=== PATIENT | male | born 1965 | race Caucasian/White ===

== ENCOUNTER → 2019-04-28 07:55 | Outpatient (BNVA) | payer OTHER, SELFPAY | PROVIDERS: Family Provider Internal Medicine; PCP Internal Medicine; Referring Provider Family Medicine; Visit Provider Specialist | DX: G56.01 Carpal tunnel syndrome, right upper limb (principal); G56.21 Lesion of ulnar nerve, right upper limb | CPT/HCPCS: 95908 ==

== ENCOUNTER 2019-05-19 10:02 | Outpatient (CLI) | payer OTHER, SELFPAY ==
--- NOTE | 2019-05-19 10:16 | XR_ITS ---
WS: [id number] XR wrist RT min 3V* [id number] REASON FOR EXAM: right carpal tunnel syndrome FINDINGS: The ulna radius were normal with normal articulation. The carpal bones appear to be normal with no distortion destructive findings. XR/XR wrist RT min 3V* [id number] IMPRESSION: Negative left wrist.
== END 2019-05-19 10:03 | disposition home or self-care (01) ==
LOC: RAD 10:04
PROVIDERS: Family Provider Internal Medicine; PCP Internal Medicine; Visit Provider Orthopaedic Surgery
DX: G56.01 Carpal tunnel syndrome, right upper limb (principal)
CPT/HCPCS: 73110

== ENCOUNTER 2019-07-01 07:34 | Day surgery (SDC) | payer OTHER, SELFPAY ==
[2019-06-30 10:19] VITALS: BMI 49.9
[2019-07-01 07:47] VITALS: BP 150/94; PULSE 80; RESP 20; TEMP 36.6; O2SAT 97
--- NOTE | 2019-07-01 08:17 | P.ANESASSM_ITS ---
Pre-Anesthetic Assessment Pre-Anesthetic Assessment: Height/Weight: Height 1.8 m Weight 162.386 kg Temp Pulse Resp BP Pulse Ox 97.8 F 80 20 H 150/94 97 07/01/19 07:47 07/01/19 07:47 07/01/19 07:47 07/01/19 07:47 07/01/19 07:47 Preop Diagnosis: Right Carpal Tunnel Release Proposed Procedure: Operation Date: 07/01/19 09:15 Proposed Procedures p Carpal Tunnel Release 53695 G56.01(Right) - Raffy Chaudhry MD Familial anesthetic complications: None Was Beta Astrid taken within 24 hour s: N/A Last intake: Intake Last Liquid Date 06/30/19 Last Liquid Time 22:30 Last Solid Date 06/30/19 Last Solid Time 22:00 Social: Social History: Alcohol and Tobacco Packs per day: 0.5 ppd Comment: 8-10 beers on weekends Exam: Pre-Anes Outpt Exam: alert, oriented x 3, clear to auscultation bilaterally and regular rate & rhythm Airway: Cervical ROM: WNL MP: 4 Dentition: Full Additional comments: missing teeth Large tongue, large neck circumference Marquez Pulmonary: Pulmonary: Sleep apnea (CPAP) CV/HEM: CV/HEM: HTN Comments: > 4 METS achievable : : None reported Hepatic: Hepatic: None reported GI: GI: GERD Metabolic: Metabolic: Hyperlipidemia and Morbid obesity Musc/skel: Musc/skel: None reported Neuropsych: Neuropsych: None reported Anesthetic Plan: ASA status: 2 Anesthesia: MAC Other: Patient ok with consious sedation as able or light MAC, informed he may have higher risk of conversion to general if unable to tolerate procedure Risk of > 500 ml blood loss (7ml/kg in children): No Data Anesthesia Cardiac Studies: No Data to Display
[2019-07-01] MEDS: sodium chloride 0.9% 1,000 ML 30 ML IV (08:19)
--- NOTE | 2019-07-01 08:34 | P.HP_ITS ---
Same Day Surgery H&P Indication for Procedure/HPI DATE OF PROCEDURE: July 01, 2019 CHIEF COMPLAINT/INDICATIONFOR SURGICAL PROCEDURE: Numbness pain right hand PREOP DIAGNOSIS: Right Carpal Tunnel Release PLANNED PROCEDRUE: Operation Date: 07/01/19 09:15 Proposed Procedures p Carpal Tunnel Release 25055 G56.01(Right) - Raffy Chaudhry MD 53-year-old male with numbness and pain in his right hand. He had strong improvement with a corticosteroid injection and moderate evidence of carpal tunnel syndrome on EMG nerve conduction studies. As he is failed conservative care he chose to proceed with right carpal tunnel release Medications/Allergies* Home Medications Medication Instructions Recorded Confirmed Type omeprazole 20 mg PO DAILY 06/30/19 06/30/19 History simvastatin 20 mg PO DAILY 06/30/19 06/30/19 History spironolacton-hydrochlorothiaz 25 tab PO DAILY 06/30/19 06/30/19 History Allergies/Adverse Reactions Allergy/AdvReac Type Severity Reaction Status Date / Time No Known Allergies Allergy Verified 05/19/19 09:33 Current Medications: Generic Name Dose Route Start Last Admin Trade Name Freq PRN Reason Stop Dose Admin Sodium Chloride 1,000 mls @ 30 mls/hr 07/01/19 07:45 07/01/19 08:19 Sodium Chloride 0.9% IV 07/02/19 07:44 30 mls/hr .Q24H ARIAN Administration Pertinent History/Comorbid Conditions* Family History (Updated 05/05/19 @ 10:44 by Jenna Pang LPN) Hypertension Denies family history of Diabetes Pertinent Exam Findings alert, oriented x 3, clear to auscultation bilaterally and regular rate & rhythm Recommendations Surgery/Procedure today Other Plans: Proceed with right carpal tunnel release Coding Level of Care Code Acute Retail Special Event Associate for Arielle Espana
[2019-07-01 08:49] LABS: Anion Gap 14.3 (5-19); Blood Urea Nitrogen 17 mg/dL (6-20); Calcium 9.7 mg/dL (8.5-10.5); Carbon Dioxide 29 mmol/L (22-29); Chloride 100 mmol/L (98-107); Glomerular Filtration Rate 57.7 mL/min (90-130); Glucose 113 mg/dL (65-115); Osmolality Calculated 285 mOsm/kg (285-295); Potassium 4.3 mmol/L (3.5-5.1); Sodium 139 mmol/L (136-145)
--- NOTE | 2019-07-01 09:37 | P.OP_ITS ---
Operative Report Date of procedure: July 01, 2019 Pre-op Diagnosis: Right Carpal Tunnel Release Post-op diagnosis: same Post-op Findings: Same Procedure Done: Right carpal tunnel release Pathology: none sent Science Education Professor: Raffy Chaudhry Anesthesia: General Estimated blood loss (mL): 10 Tourniquet time (min): 25 Complications: None Findings: No masses or space-occupying lesions were seen within the carpal tunnel Condition: stable Disposition: same day Procedure: Patient was taken to the operating room and anesthesia provided by the anesthesia service. She was prepped and draped with the arm exposed. A timeout was performed. A 3 cm long incision was made in line with the fourth ray from the distal edge of the carpal tunnel extending proximally. The subcutaneous fat and palmar fascia was divided with a scalpel blade. Under loupe magnification the ulnar neurovascular bundle was identified distally. A hemostat could be passed under the transverse carpal ligament allowing the distal 25% to be divided. A slotted guide was then passed beneath the transverse carpal ligament and the middle 50% divided. Blunt scissors were then passed over the guide freeing the proximal ligament. The tourniquet was deflated. Hemostasis provided with electrocautery. Wound edges were infiltrated with 10 cc of a half percent Marcaine solution. Skin edges were reapproximated with 3-0 Prolene. Sterile dressings were applied. The patient was taken to the recovery room in stable condition
[2019-07-01 09:55] VITALS: BP 161/103; PULSE 70; RESP 18; TEMP 36.8; O2SAT 99
[2019-07-01 10:40] VITALS: PULSE 68; RESP 18; O2SAT 98
== END 2019-07-01 10:45 | disposition home or self-care (01) ==
PROVIDERS: Anesthesiology; Family Provider Internal Medicine; PCP Internal Medicine; Visit Provider Orthopaedic Surgery
PROC: (CPT 64721; principal; 2019-07-01 09:05)
DX: G56.01 Carpal tunnel syndrome, right upper limb (principal); G47.30 Sleep apnea, unspecified; I10 Essential (primary) hypertension; K21.9 Gastro-esophageal reflux disease without esophagitis; E78.5 Hyperlipidemia, unspecified; E66.01 Morbid (severe) obesity due to excess calories; Z68.42 Body mass index [BMI] 45.0-49.9, adult; Z82.49 Family history of ischemic heart disease and other diseases of the circulatory system
CPT/HCPCS: 64721; 12345; 36415; 80048; J0690; J2001; J2250; J2704; J3010; J3490; J7030

== ENCOUNTER 2020-03-30 08:24 | Outpatient (RCR) | payer OTHER, SELFPAY | END 2020-04-03 23:59 | disposition home or self-care (01) | LOC: SOT 08:24 | PROVIDERS: PCP Internal Medicine; Referring Provider Orthopaedic Surgery; Visit Provider Orthopaedic Surgery | DX: Z47.89 Encounter for other orthopedic aftercare (principal) | CPT/HCPCS: 97110; 97165 ==

== ENCOUNTER 2020-04-01 15:33 | Outpatient (CLI) | payer OTHER, SELFPAY ==
--- NOTE | 2020-04-01 15:44 | MR_ITS ---
WS: [id number] MRI RIGHT KNEE NONCONTRAST TECHNIQUE: Axial PD, coronal PD fat sat, coronal PD, sagittal PD, and sagittal PD fat-sat images obta ined. CLINICAL INFORMATION: RIGHT KNEE EFFUSION COMPARISON: None. FINDINGS: Distal quadriceps and patella tendons are intact. Moderate suprapatellar effusion. ACL appears intact . Mucoid degeneration involving the ACL. Normal posterior cruciate ligament. Normal lateral meniscus. Small horizontal tear involving the posterior horn medial meniscus extending to the articular surfac e. Lateral subluxation of the patella in the trochlear groove. Recommend correlation for patellar instab ility. Patellar retinaculum appears intact. No subchondral edema or bony contusion. Mild chondromalac ia patella. Moderate chondromalacia involving the medial and lateral joint compartments worse in the medial joint compartment. Small amount of edema in the medial tibial plateau. Medial and lateral collateral ligam ents appear intact. MR/MR knee RT wo con* [id number] IMPRESSION: 1. Moderate suprapatellar effusion with hypertrophic patella. 2. ACL and PCL are intact. Mucoid degeneration involving the ACL. 3. Small horizontal tear involving the posterior horn medial meniscus extendin g to the articular surface. 4. Moderate joint space narrowing involving the medial joint compartment with chondromalacia and small amount of edema in the tibial plateau. 5. Lateral subluxation of the patella in the trochlear groove. Recommend corre lation for patellar instability. Retinaculum appears intact. 6. Mild chondromalacia patella. 7. Medial and lateral collateral ligaments appear intact.
== END 2020-04-01 15:34 | disposition home or self-care (01) ==
LOC: RADSHAW 15:34
PROVIDERS: PCP Internal Medicine; Visit Provider Nurse Practitioner
DX: M25.461 Effusion, right knee (principal); M22.41 Chondromalacia patellae, right knee; S83.241A Other tear of medial meniscus, current injury, right knee, initial encounter; X58.XXXA Exposure to other specified factors, initial encounter
CPT/HCPCS: 73721

== ENCOUNTER 2020-04-04 06:00 | Outpatient (RCR) | payer OTHER, SELFPAY | END 2020-05-01 23:59 | disposition home or self-care (01) | LOC: SOT 06:00 | PROVIDERS: PCP Internal Medicine; Referring Provider Orthopaedic Surgery; Visit Provider Orthopaedic Surgery | DX: Z47.89 Encounter for other orthopedic aftercare (principal) | CPT/HCPCS: 97110 ==

== ENCOUNTER → 2020-04-15 11:06 | Outpatient (BNVA) | payer OTHER, SELFPAY | PROVIDERS: PCP Internal Medicine; Visit Provider Orthopaedic Surgery | DX: Z01.812 Encounter for preprocedural laboratory examination (principal) | CPT/HCPCS: 87635 ==

== ENCOUNTER 2020-04-21 08:52 | Day surgery (SDC) | payer OTHER, SELFPAY ==
[2020-04-20 09:19] VITALS: BMI 50.2
[2020-04-21] VITALS (7 sets, daily range): BP systolic 104–150; BP diastolic 60–103; PULSE 92–110; RESP 9–19; TEMP 36.2–36.8; O2SAT 93–97
--- NOTE | 2020-04-21 09:20 | W.PM.OPSUD ---
Surgery/Procedure H&P Update DATE OF PROCEDURE: April 21, 2020 DATE H&P PERFORMED: 04/12/20 PREOP DIAGNOSIS: Knee right medial meniscal tear PLANNED PROCEDURE: Operation Date: 04/21/20 10:30 Proposed Procedures p Knee Arthroscopy with medial meniscectomy 79750 S83.249A(Right) - Raffy Chaudhry MD
--- NOTE | 2020-04-21 09:24 | ANES.PREANE2 ---
Pre-Anesthetic Assessment Pre-Anesthetic Assessment: Height/Weight: Height 1.8 m Weight 163.293 kg Temp Pulse Resp BP Pulse Ox 98.3 F 92 18 108/81 96 04/21/20 09:08 04/21/20 09:08 04/21/20 09:08 04/21/20 09:08 04/21/20 09:08 Preop Diagnosis: Knee right medial meniscal tear Proposed Procedure: Operation Date: 04/21/20 10:30 Proposed Procedures p Knee Arthroscopy with medial meniscectomy 94423 S83.249A(Right) - Raffy Chaudhry MD Was Beta Astrid taken within 24 hours: N/A Last intake: Intake Last Liquid Date 04/20/20 Last Liquid Time 21:00 Last Solid Date 04/20/20 Last Solid Time 17:00 Social: Social History: Alcohol (2 days a week 8 beers a day.) and Tobacco Packs per day: 1/2 Pack years: 36 Comment: trying to quit Exam: Pre-Anes Outpt Exam: alert, oriented x 3 and clear to auscultation bilaterally Airway: Submandibular: WNL Cervical ROM: WNL MP: 2 Dentition: Chipped Additional comments: poor dentition History/ROS: No significant history except as noted Pulmonary: Pulmonary: Sleep apnea Comments: wears CPAP device at night. CV/HEM: CV/HEM: HTN Comments: Cardiac Cath done 10 years prior normal result per patient. : : None reported Hepatic: Hepatic: None reported GI: GI: GERD Metabolic: Metabolic: Hyperlipidemia Musc/skel: Musc/skel: None reported Neuropsych: Neuropsych: None reported Anesthetic Plan: ASA status: 3 Anesthesia: Anesthesia Evaluation and General Risk of > 500 ml blood loss (7ml/kg in children): No PFSH Anesthesia PFSH: Family History Father ALS (amyotrophic lateral sclerosis) Other Hypertension Denies family history of Diabetes Social History Smoking and tobacco status: current every day smoker Alcohol intake: current Marital status: Data Anesthesia Cardiac Studies: No Data to Display
[2020-04-21] MEDS: sodium chloride 0.9% 1,000 ML 30 ML IV (09:25)
[2020-04-21] MEDS: morphine 4 mg/mL SDV 1 mL 8 MG (10:40)
--- NOTE | 2020-04-21 11:17 | P.OP_ITS ---
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 These flap seem to involve approximately 70% of thickness of cartilage although no exposed subchondral bone was noted. A small 1 cm in diameter area of full-thickness cartilage loss was seen in the posterior weightbearing aspect of the condyle. Extended up into the trochlea but did not involve the immediate weightbearing aspect of the medial femoral condyle she he had flaps and fissures centrally over his patella involving perhaps 50% of the thickness of the cartilage Condition: stable Disposition: PACU Procedure: The patient was taken to the operating room and given a general ane sthesia. He was prepped and draped in the usual fashion. His knee with infiltrated 30 cc of 0.5% Marcaine with epi and 10 mg of morphine. The knee was then entered through standard inferior medial and inferior lateral portals. The diagnostic portion of arthroscopy was performed. Attention was initially paid to the medial meniscus. It was carefully probed and found to be free of tearing. Area of full-thickness cartilage loss was identified in the far posterior weightbearing medial femoral condyle. Utilizing an incisor shaver and [employer] Werewolf probe unstable peripheral cartilage was debrided and the edges stabilized. Attention then moved to the more anterior and lateral medial femoral condyle. Large unstable flaps were debrided back with incisor shaver and the werewolf probe. At no point was exposed subchondral bone and identified here all the flaps did seem to involve approximately 70% of the thickness of the cartilage. Fortunately did not extend into the weightbearing aspect. The conclusion of debridement stable base of the residual cartilage, albeit thinned, was present throughout. Tension was then focused on the undersurface the patella. Initially an incisor was utilized to remove unstable central flaps. The M[employer]ett [employer]hew Werewolf probe was then used to debride back the margins to stable edges. At least 50% of the central cartilage was felt to remain. He was treated with saline. Portals were closed with 3-0 Prolene. Sterile dressings were applied. The patient was extubated taken recovery room in stable condition.
--- NOTE | 2020-04-21 11:29 | SUR.PHASEI ---
PT AWAKE ALERT , VERBALLY DENIES PAIN AND NAUSEA, RT KNEE DRESSING D/I DISTAL FOOT PINK WARM WITH PULSE NOTED CAP REFILL LESS THAN 3 SECONDS. BP ELEVATED AND HR PT JUST AWOKE WILL MONITOR BP.
[2020-04-21] MEDS: oxyCODONE-APAP 5-325 mg Tablet 1 TAB PO (11:57)
--- NOTE | 2020-04-21 17:19 | ANE.PACU2 ---
Inpatient post-anesthesia follow up: Airway intact: Yes Vital signs: Temperature 97.1 F Pulse Rate 100 Respiratory Rate 18 Blood Pressure 125/85 Pulse Oximetry 94 Oxygen Delivery Me thod Room Air Oxygen Flow Rate 8 Fraction of Inspir ed Oxygen Hydration adequate: Yes Nausea and vomiting: No Pain level: 2 Mental status: Baseline
== END 2020-04-21 12:17 | disposition home or self-care (01) ==
PROVIDERS: PCP Internal Medicine; Visit Provider Orthopaedic Surgery
PROC: (CPT 29870; principal; 2020-04-21 10:30)
DX: S83.241A Other tear of medial meniscus, current injury, right knee, initial encounter (principal); X58.XXXA Exposure to other specified factors, initial encounter; F17.210 Nicotine dependence, cigarettes, uncomplicated; I10 Essential (primary) hypertension; K21.9 Gastro-esophageal reflux disease without esophagitis; E78.5 Hyperlipidemia, unspecified
CPT/HCPCS: 29877; J0330; J0690; J1100; J2270; J2405; J2704; J3010; J3490; J7030

== ENCOUNTER → 2020-09-12 10:55 | Outpatient (BNVA) | payer BC, OTHER, SELFPAY | PROVIDERS: PCP Internal Medicine; Visit Provider Nurse Practitioner Family | DX: Z20.822 Contact with and (suspected) exposure to COVID-19 (principal) | CPT/HCPCS: 87635 ==

== ENCOUNTER → 2020-09-15 10:48 | Outpatient (BNVA) | payer BC, OTHER, SELFPAY | PROVIDERS: PCP Internal Medicine; Visit Provider Internal Medicine | DX: Z01.812 Encounter for preprocedural laboratory examination (principal); K22.70 Barrett's esophagus without dysplasia | CPT/HCPCS: 87635 ==

== ENCOUNTER 2020-10-23 07:28 | Emergency (ER) | payer BC, SELFPAY ==
[2020-10-23 07:33] VITALS: BP 169/93; PULSE 86; O2SAT 96
--- NOTE | 2020-10-23 07:33 | ECG_ITS ---
[facility] Test Date: 2020-10-23 Pat Name: Med Chairez Department: Room: Gender: Male Surgery Assistant: : 1965 Requested By: Blank Hendrickson Order Number: [id number] Melgar MD: Nahomi Brito M.D. Measurements Intervals [place] Rate: 82 P: 32 TN: 209 QRS: -22 QRSD: 109 T: 31 QT: 354 QTc: 415 Interpretive Statements SINUS RHYTHM BORDERLINE LEFT AXIS DEVIATION [QRS AXIS < -20] No previous ECG available for comparison Electronically Signed On 10-24-2020 13:12:22 CDT by Nahomi Brito M.D. [email or web address]
[2020-10-23 07:34] VITALS: BP 169/93; PULSE 84; RESP 18; TEMP 36.6; O2SAT 97; BMI 51.8
--- NOTE | 2020-10-23 07:39 | ED_ITS ---
HPI - Chest Pain General: Chief Complaint: Chest Pain Stated Complaint: Chest Tightness/Stomach Pain Time Seen by Provider: 10/23/20 07:30 Source: patient and family () Mode of arrival: ambulatory Limitations: no limitations History of Present Illness: HPI narrative: Patient is a nice 54-year-old male who presents to ED today along with his for complaints of chest and abdominal pain that has been present over the past 3 to 4 weeks. Patient tells me he is having a lot of bloating and belching. He is also noticed constipation which he is treating with laxatives. Patient states he was having some abdominal pains and low-grade fevers and states his PCP treated him for tick illness with doxycycline (empirical treatment, no tick panel ran). Patient states that pain radiates up into his chest and into his left shoulder although admittedly states he has had problems with his left shoulder before and states this could just be musculoskeletal. He denies any shortness of breath or difficulty breathing. No known cardiac or pulmonary disease. He states he does have a history of GERD. He states his symptoms seem to improve after belching . Patient is concerned it could be his gallbladder. He does not complain of pain to his right upper quadrant. Reports some nausea but no episodes of vomiting. MD complaint: chest pain and other (abdominal pain) Onset (ago): week(s) Timing of current episode: episodic Prior episodes: Yes Pain radiation: left shoulder Relieving factors: other ( belching ) Exacerbating factors: eating Associated symptoms: Reports abdominal pain and nausea; Deny dyspnea, fever(s), palpitations, syncope or vomiting Review of Systems Const: Denies: fever(s), chills, body aches, fatigue or malaise Eyes: Denies: change in vision, blurry vision or photophobia ENMT: Denies: throat pain, odynophagia, nasal discharge or nasal congestion Card: Reports: chest pain; Denies: palpitations, irregular heart rhythm, edema, swelling of feet/ankles, lightheadedness, syncope, pre-syncope, dyspnea on exertion, orthopnea or leg pain with exertion Resp: Denies: dyspnea, productive cough, non-productive cough, hemoptysis or chest congestion GI: Reports: abdominal pain, nausea, constipation and belching; Denies: vomiting, hematemesis, hematochezia or melena : Denies: flank pain or dysuria Musc: Reports: back pain; Denies: neck pain, extremity pain or joint pain Skin/Breast: Denies: rash Neuro: Denies: headache(s), numbness in extremities, weakness in extremities, sensory changes or dizziness PFSH ED PFSH: Family History Father ALS (amyotrophic lateral sclerosis) Other Hypertension Denies family history of Diabetes Social History Smoking and tobacco status: current every day smoker Alcohol intake: current Marital status: History of recent travel: No Physical Exam Const: COMMON NORMALS: no acute distress, patient oriented x3, no limitations and alert GENERAL APPEARANCE: cooperative NUTRITIONAL APPEARANCE: obese morbidly obese (BMI > 50) ORIENTATION/CONSCIOUSNESS: Yes awake, Yes oriented to person, Yes oriented to place and Yes oriented to time HENMT: COMMON NORMALS: normocephalic and atraumatic HEAD & SCALP: normocephalic and atraumatic Chest: COMMONS NORMALS: normal inspection of the chest OTHER: mild tenderness to L anterior chest wall Resp: COMMON NORMALS: normal respiratory effort and clear to auscultation bilaterally AUSCULTATION: clear to auscultation bilaterally Cardio: COMMON NORMALS: regular rate and regular rhythm RATE: regular rate RHYTHM: regular rhythm GI: COMMON NORMALS: Normal to inspection, nondistended, normoactive bowel sounds present, Soft to palpation and no masses PALPATION: Yes Soft to palpation and Yes Tenderness to palpation present (GI) (mild tenderness throughout upper abdomen) : COMMON NORMALS: Yes no CVA tenderness BLADDER/KIDNEY EXAM: Yes no CVA tenderness Back/Pelvis: COMMON NORMALS: no CVA tenderness BACK IMAGE (MALE): 1. TTP; states he has had problems with this area before hurting Extremity: COMMON NORMALS: capillary refill normal, no clubbing, cyanosis or edema, no calf tenderness and no pedal edema Neuro: COMMON NORMALS: patient oriented x3 SENSORIUM/ORIENTATION: Yes alert, Yes oriented to person, Yes oriented to place and Yes oriented to time Skin: COMMON NORMALS: no rashes or lesions noted GENERAL SKIN EXAM: no rashes or lesions noted TRAUMA: no lacerations or abrasions Course Vital Signs: Vital signs: Vital Signs Temperature 97.9 F 08/22/21 07:34 Pulse Rate 84 10/23/20 07:34 Respiratory Rate 18 10/23/20 07:34 Blood Pressure 169/93 10/23/20 07:34 Pulse Oximetry 97 10/23/20 07:34 MDM - Chest Pain MDM Narrative: Medical decision making narrative: Patient here with complaints of abdominal and chest pain as well as bloating and belching. He states symptoms improve after belching. He did get relief with a GI cocktail here. Vital signs are stable. Patient has a nonsurgical abdomen. Labs including CBC, CMP, lipase, UA, and troponin are fairly unremarkable. Glucose mildly elevated at 150. No history of diabetes. UA with hematuria and trace leuks/bacteria. He has no urinary symptoms at this time. Initial troponin is normal. EKG without ischemic changes. CXR showing mild atelectasis. Patient states he was placed on pantoprazole by Dr. Cotton recently but states this medication has not seemed to help much. He has a follow-up appointment on Saturday. Will place him on an H2 russ along with his PPI. Lab Data: Labs: Lab Results 10/23/20 10/23/20 10/23/20 Range/Units 07:57 08:12 08:12 WBC 5.8 (4.0-10.0) 10^3/ uL RBC 5.59 H (4.1-5.3) 10^6/u L Hgb 16.6 (11.7-16.6) g/dL Hct 49.9 (42.0-52.0) % MCV 89.3 (80-94) fl MCH 29.7 (28.0-34.0) pg MCHC 33.3 (30.0-36.0) g/dL RDW 14.6 (12.1-15.1) % Plt Count 201 (130-400) 10^3/c mm MPV 9.7 (7.4-10.4) fL Neut % (Auto) 74.8 % Lymph % (Auto) 16.6 % [place] % (Auto) 4.8 % Eos % (Auto) 3.1 % Baso % (Auto) 0.5 % Neut # (Auto) 4.32 (1.8-7.7) 10^3/u L Lymph # (Auto) 1.0 (0.8-4.8) 10^3/u L [place] # (Auto) 0.3 (0.2-0.9) 10^3/u L Eos # (Auto) 0.2 (0.0-0.8) 10^3/u L Baso # (Auto) 0.0 (0.0-0.1) 10^3/u L Nucleated RBC % (a uto) 0 % Nucleated RBCs # 0.0 /100WBC Sodium 138 (136-145) mmol/L Potassium 4.0 (3.5-5.1) mmol/L Chloride 102 (98-107) mmol/L Carbon Dioxide 25 (22-29) mmol/L Anion Gap 15.0 (5-19) BUN 14 (6-20) mg/dL Creatinine 0.8 (0.7-1.2) mg/dL GFR Calculation 100.7 (90-130) mL/min Glucose 150 H (65-115) mg/dL Calculated Osmolal ity 289 (285-295) mOsm/k g Calcium 8.9 (8.5-10.5) mg/dL Total Bilirubin 0.8 (0.15-1.2) mg/dL AST 27 (0-40) U/L ALT 41 (0-41) U/L Alkaline Phosphata se 75 (40-130) IU/L Troponin T Baselin e 7 (0-15) ng/L Total Protein 7.4 (6.6-8.7) g/dL Albumin 4.0 (3.5-5.2) g/dL Globulin 3.4 (1.3-4.6) g/dL Lipase 20 (13-60) U/L Urine Color (Yellow) Urine Appearance (CLEAR) Urine pH (5-7) Ur Specific Gravit y (1.005-1.030) Urine Protein (Negative) Urine Glucose (UA) (Normal) Urine Ketones (Negative) Urine Blood (Negative) Urine Nitrate (Negative) Urine Bilirubin (Negative) Urine Urobilinogen (Negative) mg/dL Ur Leukocyte Magdalena ase (Negative) Urine RBC (0-2) /hpf Urine WBC (0-5) /hpf Ur Squamous Epith Cells (0-5) /hpf Amorphous Sediment Urine Bacteria (NONE) /hpf Urine Mucus /hpf 08/22/21 Range/Units 08:43 WBC (4.0-10.0) 10^3/ uL RBC (4.1-5.3) 10^6/u L Hgb (11.7-16.6) g/dL Hct (42.0-52.0) % MCV (80-94) fl MCH (28.0-34.0) pg MCHC (30.0-36.0) g/dL RDW (12.1-15.1) % Plt Count (130-400) 10^3/c mm MPV (7.4-10.4) fL Neut % (Auto) % Lymph % (Auto) % [place] % (Auto) % Eos % (Auto) % Baso % (Auto) % Neut # (Auto) (1.8-7.7) 10^3/u L Lymph # (Auto) (0.8-4.8) 10^3/u L [place] # (Auto) (0.2-0.9) 10^3/u L Eos # (Auto) (0.0-0.8) 10^3/u L Baso # (Auto) (0.0-0.1) 10^3/u L Nucleated RBC % (a uto) % Nucleated RBCs # /100WBC Sodium (136-145) mmol/L Potassium (3.5-5.1) mmol/L Chloride (98-107) mmol/L Carbon Dioxide (22-29) mmol/L Anion Gap (5-19) BUN (6-20) mg/dL Creatinine (0.7-1.2) mg/dL GFR Calculation (90-130) mL/min Glucose (65-115) mg/dL Calculated Osmolal ity (285-295) mOsm/k g Calcium (8.5-10.5) mg/dL Total Bilirubin (0.15-1.2) mg/dL AST (0-40) U/L ALT (0-41) U/L Alkaline Phosphata se (40-130) IU/L Troponin T Baselin e (0-15) ng/L Total Protein (6.6-8.7) g/dL Albumin (3.5-5.2) g/dL Globulin (1.3-4.6) g/dL Lipase (13-60) U/L Urine Color Dark yellow (Yellow) Urine Appearance Clear (CLEAR) Urine pH 6.5 (5-7) Ur Specific Gravit y 1.020 (1.005-1.030) Urine Protein Trace (Negative) Urine Glucose (UA) Norm (Normal) Urine Ketones Negative (Negative) Urine Blood 2+ H (Negative) Urine Nitrate Negative (Negative) Urine Bilirubin Neg (Negative) Urine Urobilinogen 1 H (Negative) mg/dL Ur Leukocyte Magdalena ase Trace H (Negative) Urine RBC 0-4 H (0-2) /hpf Urine WBC 0-4 H (0-5) /hpf Ur Squamous Epith Cells None (0-5) /hpf Amorphous Sediment Not Reportable Urine Bacteria 1+ H (NONE) /hpf Urine Mucus 1+ /hpf Imaging Data^: CXR: Radiologist's impression: [address] [id number] ReportSigned Patient: Med Chairez #: [id number]: 1965Acct#:[id number]/Sex: 54 / MADM Date: 10/23/20Loc: ERRoom/Bed:Attending Dr: Ordering Provider/Ordering MD: Blank Hendrickson Date of Service: 10/23/20 Procedure(s): XR chest 1V portable [id number] Accession Number(s): [id number] Report Number: [id number] PROCEDURE INFORMATION: Exam: XR Chest Exam date and time: 10/23/2020 7:39 AM Age: 54 years old Clinical indication: Pain; On breathing; Additional info: Chest pain TECHNIQUE: Imaging protocol: XR of the chest. Views: Frontal portable upright view of the chest. COMPARISON: No relevant prior studies available. FINDINGS: Lungs: Mild left lateral basilar subsegmental atelectasis. The lungs are otherwise peripherally clear bilaterally. The pulmonary vasculature is normal. Pleural spaces: No pleural effusion. No pneumothorax. Heart/Mediastinum: The heart is normal in size and contour. Bones/joints: No acute abnormality identified. XR/XR chest 1V portable [id number] IMPRESSION: Mild left lateral basilar subsegmental atelectasis. Dictated By:Jefferson Maria MDSigned By:Jefferson Maria MDSigned Date/Time:10/23/20932DD/ 0 EKG Data^: EKG 1: EKG interpretation date: 10/23/20 EKG interpretation time: 07:38 Interpretation: Sinus rhythm Rate [address] elevation or depression changes noted Signed off by Dr. Louis Discharge Plan Discharge Patient Disposition: Home Clinical Impression: Gastroesophageal reflux disease Qualifiers: Esophagitis presence: esophagitis presence not specified Qualified Code(s): K21.9 - Gastro-esophageal reflux disease without esophagitis Condition: Stable Prescriptions: New Zantac-360 (famotidine) 10 mg tablet 10 mg PO BID Qty: 30 RF: 0 No Action (DME) cpap See Rx Instructions .Route .MEDSUPPLY Qty: 1 RF: 0 (DME) cpap supplies See Rx Instructions .Route .MEDSUPPLY Qty: 1 RF: 0 doxycycline hyclate 100 mg capsule 100 mg PO BID Qty: 20 RF: 0 pantoprazole 40 mg tablet,delayed release (DR/EC) 40 mg PO QAM Qty: 90 RF: 3 simvastatin 20 mg tablet 20 mg PO DAILY Qty: 90 RF: 3 spironolacton-hydrochlorothiaz 25-25 mg tablet 25 tab PO DAILY Qty: 90 RF: 3 Discharge Orders: Discharge ED (Routine); Ordered 10/23/20 Ordered By: Blank Hendrickson Referrals: Nash Cotton MD [Primary Care Provider] - Patient Instructions: Gastroesophageal Reflux Disease (ED) Activity Restrictions/Additional Instructions: As we discussed please follow-up with Dr. Cotton at your scheduled appointment on Saturday. Please return to the emergency department for worsening or severe abdominal or chest pain, shortness of breath, difficulty breathing, repetitive episodes of vomiting, bloody vomit, fevers, or any other concerns you may have. I hope you begin to feel better soon. Coding Level of Care Code ED Chief Green Officer for Chg Fwd Exam Comprehensive
[2020-10-23 08:06] LABS: Basophils % 0.5 %; Eosinophils # 0.2 10^3/uL (0.0-0.8); Eosinophils % 3.1 %; Hematocrit 49.9 % (42.0-52.0); Hemoglobin 16.6 g/dL (11.7-16.6); Lymphocytes % 16.6 %; Mean Corpuscular HGB Conc 33.3 g/dL (30.0-36.0); Mean Corpuscular Hemoglobin 29.7 pg (28.0-34.0); Mean Corpuscular Volume 89.3 fl (80-94); Mean Platelet Volume 9.7 fL (7.4-10.4); Monocytes # 0.3 10^3/uL (0.2-0.9); Monocytes % 4.8 %; Neutrophils # 4.32 10^3/uL (1.8-7.7); Neutrophils % 74.8 %; Nucleated Red Blood Cells % 0 %; Platelet Count 201 10^3/cmm (130-400); Red Blood Count 5.59 10^6/uL (4.1-5.3); Red Cell Distribution Width 14.6 % (12.1-15.1); White Blood Count 5.8 10^3/uL (4.0-10.0)
[2020-10-23] MEDS: lidocaine 2% viscous 15 ML, aluminum-mag hydrox-simethicon 30 ML, sucralfate oral liq 1 GM PO (08:34)
[2020-10-23 08:54] LABS: Alanine Aminotransferase 41 U/L (0-41); Alkaline Phosphatase 75 IU/L (40-130); Aspartate Amino Transferase 27 U/L (0-40); Blood Urea Nitrogen 14 mg/dL (6-20); Calcium 8.9 mg/dL (8.5-10.5); Carbon Dioxide 25 mmol/L (22-29); Chloride 102 mmol/L (98-107); Globulin 3.4 g/dL (1.3-4.6); Glomerular Filtration Rate 100.7 mL/min (90-130); Glucose 150 mg/dL (65-115); Lipase 20 U/L (13-60); Osmolality Calculated 289 mOsm/kg (285-295); Sodium 138 mmol/L (136-145); Total Bilirubin 0.8 mg/dL (0.15-1.2); Total Protein 7.4 g/dL (6.6-8.7)
[2020-10-23 08:54] LABS: Bilirubin Urine Neg (Negative); Blood Urine 2+ (Negative); Glucose Urine UA Norm (Normal); Ketones Urine Negative (Negative); Nitrate Urine Negative (Negative); Protein Urine Trace (Negative); Urine Appearance Clear (CLEAR); Urine Color Dark Yellow (Yellow); pH Urine 6.5 (5-7)
[2020-10-23 08:55] LABS: Add Urine Microscopic? YES; Leukocyte Esterase Urine Trace (Negative); Urobilinogen Urine 1 mg/dL (Negative)
[2020-10-23 08:57] LABS: Add Urine Culture? No; Bacteria Urine 1+ /hpf; Mucus Urine 1+ /hpf; RBC Urine 0-4 /hpf (0-2); WBC Urine 0-4 /hpf (0-5)
[2020-10-23 08:58] LABS: Troponin(5th) Baseline 7 ng/L (0-15)
== END 2020-10-23 09:55 | disposition home or self-care (01) ==
PROVIDERS: Emergency Provider Physician Assistant; PCP Internal Medicine
DX: K21.9 Gastro-esophageal reflux disease without esophagitis (principal); F17.200 Nicotine dependence, unspecified, uncomplicated
CPT/HCPCS: 71045; 80053; 81001; 83690; 84484; 85025; 93005; 99283

== ENCOUNTER → 2021-02-02 12:05 | Outpatient (BNVA) | payer BC, SELFPAY | PROVIDERS: PCP Internal Medicine; Visit Provider Nurse Practitioner Family | DX: Z20.822 Contact with and (suspected) exposure to COVID-19 (principal) | CPT/HCPCS: 87426 ==

== ENCOUNTER 2021-07-27 07:12 | Outpatient (CLI) | payer BC, SELFPAY ==
--- NOTE | 2021-07-27 14:36 | PFTS_ITS ---
Date of Study:07/27/21 Date of Dictation: MECHANICS: Forced vital capacity (FVC) is normal. Forced expiratory volume in one second (FEV1) is normal. FEV1/FVC is normal. FLOW VOLUME LOOP: Scooping present. LUNG VOLUMES: Total lung capacity (TLC) is reduced. Residual volume (RV) is reduced. DIFFUSING CAPACITY FOR CARBON MONOXIDE: Normal. INTERPRETATION: The prebronchodilator spirometry is normal. No postbronchodilator spirometry was performed. Lung volumes are consistent with mild restriction. Gas exchange (DLCO) is normal. MTDD
== END 2021-07-27 07:13 | disposition home or self-care (01) ==
LOC: RT 07:13
PROVIDERS: PCP Internal Medicine; Visit Provider Internal Medicine
DX: R06.02 Shortness of breath (principal)
CPT/HCPCS: 94010; 94726; 94729

== ENCOUNTER → 2022-01-29 09:43 | Outpatient (BNVA) | payer OTHER, SELFPAY | PROVIDERS: PCP Family Medicine; Visit Provider Family Medicine | DX: E78.5 Hyperlipidemia, unspecified (principal) | CPT/HCPCS: 80053; 80061 ==

== ENCOUNTER 2023-02-28 07:38 | Outpatient (CLI) | payer OTHER, MEDICAID, SELFPAY ==
--- NOTE | 2023-02-28 08:00 | USR_ITS ---
PROCEDURE INFORMATION: Exam: US Abdomen, Limited; Right Upper Quadrant Exam date and time: 02/28/2023 7:57 AM Age: 57 years old Clinical indication: Nausea; Additional info: Postprandial nausea diarrhea TECHNIQUE: Imaging protocol: Real time ultrasound of the abdomen with image documentation. Limited exam focused on the right upper quadrant. COMPARISON: US scrotum [id number] 11/13/2016 3:24 PM FINDINGS: Liver: The liver is diffusely echogenic and attenuating, compatible with fatty infiltration. Gallbladder: Normal. No gallstones. There is no gallbladder wall thickening. Biliary ducts: The common duct measures 5 mm. Pancreas: The pancreas was poorly depicted. Right kidney: The right kidney measures 11.9 cm in length, is normal in contour and echotexture without hydronephrosis. Bowel: The study is degraded by the patient's body habitus and obscuring bowel gas. US/US abdomen limited [id number] IMPRESSION: Limited study. Fatty liver.
== END 2023-02-28 07:39 | disposition home or self-care (01) ==
LOC: RAD 07:38
PROVIDERS: PCP Family Medicine; Visit Provider Family Medicine
DX: R11.0 Nausea (principal); K52.9 Noninfective gastroenteritis and colitis, unspecified; K76.0 Fatty (change of) liver, not elsewhere classified
CPT/HCPCS: 76705

== ENCOUNTER 2023-04-02 07:36 | Outpatient (CLI) | payer MEDICAID, SELFPAY ==
--- NOTE | 2023-04-02 08:00 | NM_ITS ---
WS: [id number] NUCLEAR MEDICINE HIDA SCAN CLINICAL INFORMATION: r/o gallbladder dysfunction, normal us TECHNIQUE: Following intravenous administration of 7.4 mCi of technetium 99m mebrofenin, images of th e abdomen were obtained over the course of 60 minutes. Next, gallbladder ejection fraction was determ ined by obtaining preprandial and one-hour postprandial images of the gallbladder following oral pooja stion of Ensure. COMPARISON: Ultrasound 02/28/2023 FINDINGS: Normal hepatic uptake at 5 minutes. Normal hepatic excretion. Hepatomegaly. Gallbladder is visualized by 20 minutes. No evidence of acute cholecystitis. Normal common bile duct and small bowel activity. Abnormal decreased gallbladder ejection fraction 17%. IMPRESSION: 1. Decreased gallbladder ejection fraction 17% compatible with gallbladder dysfunction. Recommend co rrelation for chronic cholecystitis.
== END 2023-04-02 07:37 | disposition home or self-care (01) ==
LOC: RAD 07:36
PROVIDERS: PCP Family Medicine; Visit Provider Family Medicine
DX: R16.0 Hepatomegaly, not elsewhere classified (principal); R11.0 Nausea; R94.8 Abnormal results of function studies of other organs and systems
CPT/HCPCS: 78227; A9537

== ENCOUNTER → 2023-04-08 10:46 | Outpatient (BNVA) | payer MEDICAID, SELFPAY | PROVIDERS: PCP Family Medicine; Visit Provider Family Medicine | DX: R42 Dizziness and giddiness (principal) | CPT/HCPCS: 80053; 82607; 83735; 84443; 85025 ==

== ENCOUNTER 2023-06-03 05:43 | Day surgery (SDC) | payer MEDICAID, SELFPAY ==
[2023-06-03] VITALS (14 sets, daily range): BP systolic 106–142; BP diastolic 67–86; PULSE 71–103; RESP 9–22; TEMP 36.1–36.3; O2SAT 92–99; BMI 48.8
[2023-06-03] MEDS: sodium chloride 0.9% 1,000 ML 30 ML IV (06:11)
--- NOTE | 2023-06-03 06:47 | P.HP_ITS ---
Same Day Surgery H&P Indication for Procedure/HPI DATE OF PROCEDURE: June 03, 2023 CHIEF COMPLAINT/INDICATIONFOR SURGICAL PROCEDURE: chronic cholecystitis PREOP DIAGNOSIS: chronic cholecystitis PLANNED PROCEDURE: Operation Date: 06/03/23 07:00 Proposed Procedures p 08490 lap delmar K81.1(Not Applicable) - Jordan Acosta MD Medications/Allergies* Home Medications Medication Instructions Recorded Confirmed Type pantoprazole 40 mg tablet,delayed 40 mg PO BID 05/31/23 05/31/23 History release Allergies/Adverse Reactions Allergy/AdvReac Type Severity Reaction Status Date / Time No Known Allergies Allergy Verified 05/31/23 08:34 Current Medications: Generic Name Dose Route Start Last Admin Trade Name Freq PRN Reason Stop Dose Admin Sodium Chloride 1,000 mls @ 30 mls/hr 06/03/23 06:00 06/03/23 06:11 Sodium Chloride 0.9% IV 06/04/23 05:59 30 mls/hr .Q24H ARIAN Administration Pertinent History/Comorbid Conditions* Medical History (Updated 04/23/23 @ 16:03 by Jordan Acosta MD) Anxiety Hypertension Hyperlipidemia NASH on CPAP Tobacco abuse History of scrotal mass surgery to remove abcess Class 3 severe obesity with body mass index (BMI) of 50.0 to 59.9 in adult GERD (gastroesophageal reflux disease) Surgical History (Updated 01/29/22 @ 08:51 by Millie Contreras MD) History of arthroscopic knee surgery bilateral History of tonsillectomy History of colonoscopy History of carpal tunnel release 07/01/2019- rt wrist Family History (Updated 01/29/22 @ 08:52 by Millie Contreras MD) ALS (amyotrophic lateral sclerosis) Father Hypertension Mother Denies family history of Diabetes CAD (coronary artery disease) Chronic kidney disease (CKD) Family history of premature coronary artery disease Cancer Stroke Social History Smoking and tobacco/nicotine status: current every day tobacco/nicotine user cigarettes Packs smoked per day: 0.5 Quit status (tobacco/nicotine): considering quitting Alcohol intake: current Alcohol intake frequency: few times a week Substance/Drug Use: never Lives independently: Yes Household members: significant other Marital status: Number of children: 3 service: No Current occupational status: retired 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
--- NOTE | 2023-06-03 06:59 | P.ANESASSM_ITS ---
Pre-Anesthetic Assessment Height/Weight: Height 1.8 m Weight 158.757 kg Temp Pulse Resp BP Pulse Ox O2 Del Method 97 F L 103 H 20 H 128/86 94 Room Air 06/03/23 05:56 06/03/23 05:56 06/03/23 05:56 06/03/23 05:56 06/03/23 05:56 06/03/23 06:20 Preop Diagnosis: chronic cholecystitis Operation Date: 06/03/23 07:00 Proposed Procedures p 15114 lap delmar K81.1(Not Applicable) - Jordan Acosta MD Familial anesthetic complications: Agitation post op Was Beta Astrid taken within 24 hours: N/A Was Clonidine taken within 24 hours: N/A Last intake: Intake Last Liquid Date 06/02/23 Last Liquid Time 20:30 Last Solid Date 06/02/23 Last Solid Time 17:00 Social Tobacco (counseled on smoking cessation) and No alcohol Airway Mallampati: Class IV Dentition: full Comments: Comments: Large neck circumference, Glideoscope 4 w/ grade I airway on previous intubation CV/HEM Arrythmia (nash) RBBB GI Gastroesophageal Reflux Disease Metabolic Morbid Obesity Anesthetic Plan ASA status: 3 Anesthesia: General Risk of > 500 ml blood loss (7ml/kg in children): No Medications/Allergies Home Medications Medication Instructions Recorded Confirmed Last Taken Type cpap #1 ea 11/20/21 05/28/23 Unknown Rx cpap supplies #1 ea 11/20/21 05/28/23 Unknown Rx pantoprazole 40 mg tablet,delayed 40 mg PO BID 05/31/23 05/31/23 05/31/23 History release Allergies Allergy/AdvReac Type Severity Reaction Status Date / Time No Known Allergies Allergy Verified 05/31/23 08:34 Current Medications Generic Name Dose Route Start Last Admin Trade Name Freq PRN Reason Stop Dose Admin Sodium Chloride 1,000 mls @ 30 mls/hr 06/03/23 06:00 06/03/23 06:11 Sodium Chloride 0.9% IV 06/04/23 05:59 30 mls/hr .Q24H ARIAN Administration PFSH Anesthesia Medical History Anxiety Hypertension Hyperlipidemia NASH on CPAP Tobacco abuse History of scrotal mass surgery to remove abcess Class 3 severe obesity with body mass index (BMI) of 50.0 to 59.9 in adult GERD (gastroesophageal reflux disease) Surgical History History of arthroscopic knee surgery bilateral History of tonsillectomy History of colonoscopy History of carpal tunnel release 07/01/2019- rt wrist Family History Father ALS (amyotrophic lateral sclerosis) Mother Hypertension Denies family history of Diabetes CAD (coronary artery disease) Chronic kidney disease (CKD) Family history of premature coronary artery disease Cancer Stroke Social History Smoking and tobacco/nicotine status: current every day tobacco/nicotine user cigarettes Packs smoked per day: 0.5 Quit status (tobacco/nicotine): considering quitting Alcohol intake: current Alcohol intake frequency: few times a week Substance/Drug Use: never Lives independently: Yes Household members: significant other Marital status: Number of children: 3 service: No Current occupational status: retired 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
[2023-06-03] MEDS: ceFAZolin 3,000 MG in sodium chloride 0.9% (plus) 100 ML 200 MG IV (07:10)
[2023-06-03] MEDS: BUPivacaine 0.25% INJ 10 mL INJECTION (07:52)
[2023-06-03] MEDS: lidocaine-epi 1% 20 mL INJ INJECTION (07:52)
--- NOTE | 2023-06-03 09:03 | PM.OP ---
Operative Report Date of procedure: June 03, 2023 Pre-op diagnosis: Chronic cholecystitis Post-op diagnosis: Same Post-op findings: Contracted gallbladder, no stones Procedure done: Laparoscopic cholecystectomy Specimens removed/disposition: Gallbladder Surgeon: Jordan Acosta MD Pump Installer: MARIANNE OR Staff Estimated blood loss: 10 Complications: none Brief History: 57-year-old male who was referred to my clinic for suspected chronic cholecystitis as evidenced by a positive HIDA scan. After discussion of all risk and benefits as documented my preop note we decided to proceed with laparoscopic cholecystectomy Procedure: Patient was brought into the OR, he was placed in a supine position. General anesthesia was given. The abdomen was prepped and draped in the usual sterile fashion. Timeout was conducted. The abdomen was accessed via Optiview in the left upper quadrant at Sommer's point. Pneumoperitoneum was achieved and initial laparoscopy showed no evidence of visceral injury. Additional 5 mm trocars were placed in the right flank right upper quadrant and epigastric region under direct visualization. A 12 mm port trocar was then placed on the supraumbilical position under direct visualization. The gallbladder was grasped and retracted cephalad, this was noted to be contracted especially towards the fundus. The infundibulum was grasped and retracted on the inferolateral direction, significant fatty tissue was encountered in this area. I then proceeded to open the peritoneum anterior to the hepatocystic triangle, this opening was carried in the medial and lateral direction to the edges of the liver and then on the sides of the gallbladder to allow for better exposure. Fatty tissue surrounding the gallbladder and hepatocystic triangle was bluntly dissected with [place] and then the [place]. With careful dissection I was able to encircle the cystic duct and artery. I was then able to use electrocautery to elevate the lower third of the gallbladder from the liver bed. Critical view of safety was achieved. I then proceeded to double clipped proximally and single clipped distally the cystic duct and artery and transected them. The gallbladder was removed from the liver bed using electrocautery. During the removal a hole was made in the gallbladder with immediate spillage of bile, no evidence of a stones were noted in the gallbladder. The bile was suctioned. Once the gallbladder was removed, this was retrieved through the umbilical trocar site in an Endo Catch bag. I then proceeded to irrigate and suction the gallbladder fossa and perihepatic spaces. No evidence of additional bleeding or bile leak were noted and the clips were noted to be in a good position. I then proceeded to remove the supraumbilical trocar and the fascia at this level was closed using #0 Vicryl with a Nathanael-Fran suture passer under direct visualization. The right flank right upper quadrant and epigastric trocars were removed under direct visualization, the left upper quadrant trocar was used to evacuate the pneumoperitoneum and subsequently removed. The wounds were closed in layers using #3-0 Vicryl for the subcutaneous tissue and #4 Monocryl for the skin. Local anesthesia was applied. Dermabond was applied. At the end of the procedure all counts were correct, the patient tolerated well the procedure and was transferred to the PACU in stable condition.
[2023-06-03] MEDS: fentaNYL 50 mcg/mL INJ 2mL IVP (09:39)
[2023-06-03] MEDS: oxyCODONE 5 mg IR Tab/Cap PO (10:11)
--- NOTE | 2023-06-03 10:46 | PC.NURSE ---
650 ml NS wasted.
--- NOTE | 2023-06-03 10:55 | ANE.PACU2 ---
Inpatient post-anesthesia follow up: Airway intact: Yes Vital signs: Temperature 97 F Pulse Rate 75 Respiratory Rate 18 Blood Pressure 122/75 Pulse Oximetry 92 Oxygen Delivery Me thod Room Air Oxygen Flow Rate 1 Fraction of Inspir ed Oxygen Hydration adequate: Yes Nausea and vomiting: No Pain level: 1 Mental status: Baseline
== END 2023-06-03 10:55 | disposition home or self-care (01) ==
PROVIDERS: PCP Family Medicine; Visit Provider Surgery
PROC: 0FT44ZZ Resection of Gallbladder, Percutaneous Endoscopic Approach (ICD-10-PCS; CPT 47562; principal; 2023-06-03 07:00)
DX: K81.1 Chronic cholecystitis (principal); G47.33 Obstructive sleep apnea (adult) (pediatric); K21.9 Gastro-esophageal reflux disease without esophagitis; I10 Essential (primary) hypertension; E66.01 Morbid (severe) obesity due to excess calories; Z68.42 Body mass index [BMI] 45.0-49.9, adult; E78.5 Hyperlipidemia, unspecified; F17.210 Nicotine dependence, cigarettes, uncomplicated
CPT/HCPCS: 47562; 88304; J0690; J2250; J2704; J2710; J3010; J3490; J7030

== ENCOUNTER → 2023-06-26 12:09 | Outpatient (BNVA) | payer MEDICAID, SELFPAY | PROVIDERS: PCP Family Medicine; Visit Provider Surgery | DX: M25.512 Pain in left shoulder | CPT/HCPCS: 73030 ==

== ENCOUNTER 2023-08-15 07:47 | Outpatient (CLI) | payer MEDICAID, SELFPAY ==
--- NOTE | 2023-08-15 07:48 | MR_ITS ---
WS: [id number] MRI LEFT SHOULDER ARTHROGRAM HISTORY: avulsion fracture lt shoulder - inf glenoid humeral head COMPARISON: Shoulder radiograph 06/26/2023 TECHNIQUE: Pre and postcontrast imaging. Gadolinium mixture was injected under fluoroscopy. Coronal T 1 fat sat, sagittal T2 fat sat, coronal T2 fat sat, axial proton density, axial T1 nonfat saturation views are submitted. Prearthrogram imaging: This study is compromised by patient's body habitus. Severe AC joint arthritis. Osteophyte encroachment upon the myotendinous supraspinatus. Moderate suba cromial impingement. There is a small amount of fluid in the subacromial and subdeltoid bursa. Tendin opathy of the supraspinatus tendon but no tear. There is focal increased T2 signal in the distal subs capularis tendon towards the insertion site highly suspicious for an interstitial tear. There is also marked thickening and increased signal in the coracohumeral ligament. Biceps tendon is not identifie d in the bicipital groove. Suspect the biceps tendon is displaced. There is a rounded low signal focu s adjacent to the distal subscapularis tendon which is probably the dislocated biceps tendon. There is an additional concave defect involving the inferior medial humeral head. This may be an impa ction osseous site from a prior injury. Most likely an osteochondral defect with delamination of the cartilage. Mild thinning and fraying of the adjacent labrum. Post arthrogram imaging: T1 post contrast axial image significantly compromised by patient's body hab itus. Patient did not fit in the central bore of the magnet. There is contrast in the joint space but the contrast also extravasates from the joint space along the subscapularis muscle. There is a well- circumscribed 4 mm low signal nodule associated with the distal subscapularis tendon which may be a l oose body or the dislocated biceps tendon. Contrast extends into the rotator cuff interval. Mild thic kening of the coracohumeral ligament. There is no fluid extending into the subacromial subdeltoid bur sa. Contrast extends into the superior labrum consistent with a labral tear. Anterior labrum and posterio r labrum difficult to visualize. There is a small amount of contrast undercutting the cartilage of th e inferomedial humeral head which may be an area of delamination. This is at the site of the previous ly described marrow signal abnormality. MR/MR shoulder LT wo/w con [id number] IMPRESSION: 1. Severe AC joint arthritis with encroachment upon the myotendinous supraspin atus. 2. Moderate subacromial impingement by osteophyte upon the supraspinatus. 3. Tendinopathy in the distal supraspinatus and subscapularis tendon. Suspect intrasubstance tear of the subscapularis tendon. 4. Marked thickening of the coracohumeral ligament. 5. Biceps tendon is not identified in the bicipital groove. There is a rounded 4 mm low signal focus inseparable from the subscapularis tendon. I suspect thi s is probably of the dislocated biceps tendon. 6. Concave deformity involving the inferior medial humeral head. This is proba riky from an old fracture or an osteochondral lesion. On the postcontrast images there is a suggestion of delamination or contrast extending into the defect. 7. Tear of the superior labrum. 8. Abnormal configuration of the anterior labrum. Frayed labrum but no definit e tear confirmed on the postcontrast imaging. Abnormal signal in the anterior l abrum is associated with the concave defect in the humeral head. 9. Moderate glenohumeral joint narrowing. 10. Rotator cuff abnormality. Post injected contrast extends into the rotator cuff where the nonvisualized biceps tendon should be.
--- NOTE | 2023-08-15 08:00 | IR_ITS ---
WS: [id number] LEFT SHOULDER ARTHROGRAM UNDER FLUOROSCOPY. PRIOR TO MRI EVALUATION. HISTORY: avulsion fracture of left shoulder COMPARISON: None available. FLUOROSCOPY TIME: 1min [id number] # of spot films: 2 Procedure, risks and complications were explained to the patient. Consent has been obtained. Under fluoroscopic guidance the skin is marked over the medial superior third of the humeral head, cl eansed with ChloraPrep and anesthetized with lidocaine. 22-gauge spinal needle is inserted to the cor dustin of the humeral head. Test injection with Omnipaque reveals the needle is appropriately positioned in the joint. A mixture of 10 cc sterile saline, 5 cc Omnipaque and 0.1 mmol gadolinium are injected under fluoroscopic guidance. Patient tolerated the joint distention well. No complications. Large amount of contrast injected into the glenohumeral joint extravasates towards the subscapularis tendon and subscapularis recess. There is a cortical defect which is concave involving the inferior m edial humeral head which was previously described by radiograph. This appears to be a site of prior i mpaction site or osteochondral lesion. It was difficult to inject the contrast into the joint space. Suspect the joint space is scarred down and fibrotic. Adequate contrast was injected. AC joint arthritis. IR/IR arthrogram shoulderLT [id number] IMPRESSION: LEFT shoulder joint injection prior to MRI.
[2023-08-15] MEDS: gadobenate dimeglumine 20 mL vial 0.200000000000000011 ML IV (09:48)
[2023-08-15] MEDS: iohexol 240 mg/mL 50 mL Btl 15 ML INTRA-ARTI (09:50)
== END 2023-08-15 07:48 | disposition home or self-care (01) ==
LOC: RAD 07:47
PROVIDERS: PCP Family Medicine; Visit Provider Family Medicine
DX: S42.92XA Fracture of left shoulder girdle, part unspecified, initial encounter for closed fracture (principal); S43.432A Superior glenoid labrum lesion of left shoulder, initial encounter; M25.712 Osteophyte, left shoulder; M13.812 Other specified arthritis, left shoulder; M67.80 Other specified disorders of synovium and tendon, unspecified site; M89.722 Major osseous defect, left humerus; M24.212 Disorder of ligament, left shoulder; X58.XXXA Exposure to other specified factors, initial encounter
CPT/HCPCS: 23350; 73223; 77002; A9577; Q9966

== ENCOUNTER → 2023-08-20 12:54 | Outpatient (BNVA) | payer MEDICAID, SELFPAY | PROVIDERS: PCP Family Medicine; Visit Provider Student in an Organized Health Care Education/Training Program | DX: S42.92XA Fracture of left shoulder girdle, part unspecified, initial encounter for closed fracture (principal); M75.42 Impingement syndrome of left shoulder; M19.012 Primary osteoarthritis, left shoulder; S43.432A Superior glenoid labrum lesion of left shoulder, initial encounter; X58.XXXA Exposure to other specified factors, initial encounter | CPT/HCPCS: 73030 ==

== ENCOUNTER → 2024-01-20 10:20 | Outpatient (BNVA) | payer MEDICAID, SELFPAY | PROVIDERS: PCP Family Medicine; Visit Provider Family Medicine | DX: I10 Essential (primary) hypertension; E78.5 Hyperlipidemia, unspecified; M25.512 Pain in left shoulder | CPT/HCPCS: 80053; 80061 ==

== ENCOUNTER → 2024-05-04 15:05 | Outpatient (BNVA) | payer MEDICAID, SELFPAY | PROVIDERS: PCP Family Medicine; Visit Provider Family Medicine | DX: I10 Essential (primary) hypertension (principal) | CPT/HCPCS: 80048; 88305 ==

== ENCOUNTER → 2025-01-04 08:41 | Outpatient (BNVA) | payer MEDICAID, SELFPAY | PROVIDERS: PCP Family Medicine; Visit Provider Family Medicine | DX: I10 Essential (primary) hypertension (principal); E78.5 Hyperlipidemia, unspecified | CPT/HCPCS: 80053; 80061 ==

== ENCOUNTER 2025-01-13 08:08 | Outpatient (CLI) | payer MEDICAID, SELFPAY ==
--- NOTE | 2025-01-13 08:30 | CT_ITS ---
WS: [id number] LDCT LUNG CANCER SCREENING HISTORY: lung cancer screening TECHNIQUE: Axial imaging performed from the apices to 1 cm below the costophrenic angles. Coronal and sagittal reformats are submitted with axial MIP series. All CT scans at [facility] use at least one of these dose optimization techniques: automated exposure control; mA and/or kV adjustment per patient size (includes targeted exams where dose is matched to clinical indication); or iterative reconstruction. DLP: 430.89 mGy.cm DIvol: Mean CTDIvol: 11.20 (mGy) COMPARISON: None available. Diagnostic quality: Satisfactory Lungs: Mild hyperexpansion of the lungs. Benign granuloma RIGHT lower lobe. No suspicious mass or nodules. No endobronchial lesions. Heart: Normal size heart with no pericardial effusion.. Other findings: No mediastinal or hilar adenopathy. Normal size aorta and pulmonary artery. Liver and spleen appear enlarged although not completely included. Prior cholecystectomy. No adrenal mass. Anterior bridging osteophytes throughout the thoracic spine. No fractures. CT/CT lung screening [id number] IMPRESSION: LUNG-RADS: 2S-Benign Appearance or Behavior with Significant Findings FOLLOW UP: 12 Month: Continue annual screening with LDCT OTHER FINDINGS (S MODIFIER): Although incompletely included the liver and splee n appear enlarged.
== END 2025-01-13 08:09 | disposition home or self-care (01) ==
LOC: RAD 08:11
PROVIDERS: PCP Family Medicine; Visit Provider Family Medicine
DX: Z12.2 Encounter for screening for malignant neoplasm of respiratory organs (principal); Z87.891 Personal history of nicotine dependence; J98.4 Other disorders of lung; J84.10 Pulmonary fibrosis, unspecified; R16.1 Splenomegaly, not elsewhere classified; R16.0 Hepatomegaly, not elsewhere classified; Z90.49 Acquired absence of other specified parts of digestive tract; M25.78 Osteophyte, vertebrae
CPT/HCPCS: 71271